=== PATIENT | male | born 1960 | race African-American/Black ===

== ENCOUNTER 2017-04-24 14:20 | Emergency (ER) | payer BC ==
[2017-04-24 14:26] VITALS: BP 129/74; PULSE 94; TEMP 98; BMI 28.5
--- NOTE | 2017-04-24 14:29 | PDOC ---
Rapid Medical Evaluation Time Seen by Provider: 04/24/17 14:25 Medical Evaluation: Allergies Allergy/AdvReac Type Severity Reaction Status Date / Time No Known Allergies Allergy Verified 04/24/17 14:22 04/24/17 14:25 The patient presents with a chief complaint of: L lower back pain for one day. Pt. is a construction job titles. I have performed a brief in-person evaluation of this patient; Pertinent physical exam findings: TTP of the L lower back, buttock I have ordered the following: Nothing The patient will proceed to the ED for further evaluation.
[2017-04-24] MEDS ORDERED: KETOROLAC TROMETHAMINE 60 MG/2 ML VIAL IM ONE (15:16)
[2017-04-24] MEDS ORDERED: diazePAM 5 MG TABLET PO ONE (15:17)
--- NOTE | 2017-04-24 15:21 | PDOC ---
History of Present Illness - General Chief Complaint: Back Pain Stated Complaint: BACK PAIN/REAR PAIN Time Seen by Provider: 04/24/17 14:25 History Source: Patient Exam Limitations: No Limitations - History of Present Illness Initial Comments: 04/24/17 15:20 CHIEF COMPLAINT: [Lower back pain] HISTORY OF PRESENT ILLNESS:[56]-year-old [male], history of low back pain two years ago. 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 No neurosensory deficits, no bowel or bladder difficulty incontinence or urinary retention, no saddle anesthesia, no footdrop. No history of IVDU or history of cancer. ] REVIEW OF SYSTEMS: GENERAL: Afebrile, denies any weakness RESPIRATORY: No cough, wheezing, or hemoptysis. CARDIAC: No chest pain or shortness of breath MUSCULOSKELETAL: Pain to left lateral lower back. No point tenderness. Pain worse on left then right ] SKIN : No erythema, no bruising, no deformity. GI/: Denies any abdominal pain, no urinary difficulty, incontinence or urinary retention. RECTAL: Denies any difficulty this A.m. NEUROLOGICAL: Denies any numbness or tingling. No neurosensory deficits. PHYSICAL EXAM: GENERAL: The patient is awake, alert, and fully oriented, in no acute distress. RESPIRATORY: Lungs clear bilaterally, no rhonchi wheezes or crackles CARDIAC: S1-S2 audible, no murmur rub or gallop MUSCULOSKELETAL: Pain to generalized lower back, nonradiating, no tingling or sensory deficit. Less than 2 second cap refill, +4 popliteal and pedal pulses. GI/: Abdomen soft, nontender, nondistended. No rebound tenderness. No masses palpable. MUSCULOSKELETAL: No spinal point tenderness. Normal reflexive and no deficits to sensation or strength. RECTAL: Good rectal tone SKIN: Warm, Dry, normal turgor, no erythema, no edema no bruising. Past History - Past Medical History Allergies/Adverse Reactions: Allergies Allergy/AdvReac Type Severity Reaction Status Date / Time No Known Allergies Allergy Verified 04/24/17 14:22 Home Medications: Ambulatory Orders Cyclobenzaprine HCl [Flexeril 10 mg] 10 mg PO BID PRN #20 tablet MDD 2 04/24/17 Methylprednisolone [Medrol Dose Ismael] 4 mg PO ASDIR #21 tablet 12/14/17 COPD: No - Immunization History Immunization Up to Date: Yes - Suicide/Smoking/Psychosocial Hx Smoking History: Current every day smoker Have you smoked in the past 12 months: Yes Number of Cigarettes Smoked Daily: 10 Information on smoking cessation initiated: Yes 'Breaking Loose' booklet given: 04/24/17 Hx Alcohol Use: No Drug/Substance Use Hx: No Substance Use Type: None *Physical Exam - Vital Signs Last Vital Signs Temp Pulse Resp BP Pulse Ox 98.0 F 94 H 18 129/74 100 04/24/17 14:23 04/24/17 14:23 04/24/17 14:23 04/24/17 14:23 04/24/17 14:23 Medical Decision Making - Medical Decision Making 04/24/17 15:48 A/P: Patient with lower back pain, lifts heavy things and a daily basis denies any neurosensory deficits no footdrop or saddle anesthesia. No bowel or bladder difficulty. Patient with sciatic pain, toradol 60 mg IM x 1 and Valium 5 mg po given. Will reevaluate. 04/24/17 18:32 Patient reports he feels a little better after the Toradol DC patient home on Medrol Dosepak and Flexeril, strict follow-up with orthopedics. Proper lifting technique. I discussed the physical exam findings, ancillary test results and final diagnoses with the patient. I answered all of the patient's questions. The patient was satisfied with the care received and felt comfortable with the discharge plan and treatment plan. The patient will call to arrange follow-up and will return to the Emergency Department with any new, persistent or worsening symptoms. *DC/Admit/Observation/Transfer Diagnosis at time of Disposition: Back pain Qualifiers: Back pain location: low back pain Chronicity: acute Back pain laterality: left Sciatica presence: with sciatica Sciatica laterality: sciatica of left side Qualified Code(s): M54.42 - Lumbago with sciatica, left side - Discharge Dispostion Disposition: HOME Condition at time of disposition: Good Admit: No - Prescriptions Prescriptions: Cyclobenzaprine HCl [Flexeril 10 mg] 10 mg PO BID PRN #20 tablet MDD 2 PRN Reason: Pain Methylprednisolone [Medrol Dose Ismael] 4 mg PO ASDIR #21 tablet - Referrals Referrals: Bernard Gilliland MD [Staff Physician] - - Patient Instructions Printed Discharge Instructions: DI for Low Back Pain Additional Instructions: 1. Please return to the emergency department with any numbness, tingling, weakness, numbness or tingling to groin or legs, or loss of bowel or bladder function. 2. Use pain medication as ordered. 3. Please is to followup in the office of [Darshana] for evaluation within a week if no improvement. 4. Ice or heat 5. Refrain from lifting anything above 10 pounds, until pain resolved. - Post Discharge Activity Forms/Work/School Notes: Back to Work
[2017-04-24] MEDS ORDERED: KETOROLAC TROMETHAMINE 60 MG/2 ML VIAL ONE (15:22)
[2017-04-24] MEDS ORDERED: diazePAM 5 MG TABLET ONE (15:22)
== END 2017-04-24 16:41 | disposition home or self-care (01) ==
LOC: JERFT 14:20
PROC: 3E0233Z Introduction of Anti-inflammatory into Muscle, Percutaneous Approach (ICD-10-PCS; principal; 2017-04-24)
DX: M54.42 Lumbago with sciatica, left side (principal); X58.XXXA Exposure to other specified factors, initial encounter; Y93.89 Activity, other specified; Y92.9 Unspecified place or not applicable; Y99.0 Civilian activity done for income or pay; F17.210 Nicotine dependence, cigarettes, uncomplicated
CPT/HCPCS: 99281-25

== ENCOUNTER 2017-09-29 07:14 | Emergency (ER) | payer BC ==
[2017-09-29 07:38] VITALS: BP 130/55; PULSE 106; TEMP 98.3; BMI 27.8
--- NOTE | 2017-09-29 09:19 | PDOC ---
History of Present Illness - General Chief Complaint: Pain Stated Complaint: RIGHT SIDE PAIN/GROIN PAIN Time Seen by Provider: 09/29/17 08:46 History Source: Patient Exam Limitations: No Limitations - History of Present Illness Initial Comments: 09/29/17 09:15 Best Contact: PCP:none Pmhx:N/A Pshx: 1979's/ bilat knee arthroscopy Allergies: NKDA 57-year-old male presents to the ER complaining of right lower back pain which radiates into the right buttocks and down the lateral right leg to the lateral knee since yesterday. Patient denies any injuries/fall/trauma. Pain is described as 4/10 dull discomfort. There are no exacerbating or alleviating factors. Patient denies fever, chills, nausea/vomiting, chest pain, shortness of breath, abdominal pains, urinary symptoms. Eyes history of renal colic. Past History - Past Medical History Allergies/Adverse Reactions: Allergies Allergy/AdvReac Type Severity Reaction Status Date / Time No Known Allergies Allergy Verified 09/29/17 07:34 Home Medications: Ambulatory Orders NK [No Known Home Medication] 09/29/17 COPD: No Other medical history: DENIES. - Immunization History Immunization Up to Date: Yes - Suicide/Smoking/Psychosocial Hx Smoking History: Current every day smoker Have you smoked in the past 12 months: Yes Number of Cigarettes Smoked Daily: 10 Information on smoking cessation initiated: No 'Breaking Loose' booklet given: 04/24/17 Hx Alcohol Use: No Drug/Substance Use Hx: No Substance Use Type: None Review of Systems - Review of Systems Able to Perform ROS?: Yes Comments:: 09/29/17 09:18 CONSTITUTIONAL: Absent: fever, chills, diaphoresis, generalized weakness, malaise, loss of appetite HEENT: Absent: rhinorrhea, nasal congestion, throat pain, throat swelling, difficulty swallowing, mouth swelling, ear pain, eye pain, visual Changes CARDIOVASCULAR: Absent: chest pain, loss of consciousness, palpitations, irregular heart rate, peripheral edema RESPIRATORY: Absent: cough, shortness of breath, dyspnea with exertion, orthopnea, wheezing, stridor, hemoptysis GASTROINTESTINAL: Absent: abdominal pain, abdominal distension, nausea, vomiting, diarrhea, constipation, melena, hematochezia GENITOURINARY: Absent: dysuria, frequency, urgency, hesitancy, hematuria, flank pain, genital pain MUSCULOSKELETAL: +Right low back pain /radiating to right buttock/lat upper leg to knee Absent: myalgia, arthralgia, joint swelling SKIN: Absent: rash, itching, pallor HEMATOLOGIC/IMMUNOLOGIC: Absent: easy bleeding, easy bruising, lymphadenopathy, frequent infections ENDOCRINE: Absent: unexplained weight gain, unexplained weight loss, heat intolerance, cold intolerance NEUROLOGIC: Absent: headache, focal weakness or paresthesias, dizziness, unsteady gait, seizure, mental status changes, bladder or bowel incontinence PSYCHIATRIC: Absent: anxiety, depression, suicidal or homicidal ideation, hallucinations. Is the patient limited Spanish proficient: No *Physical Exam - Vital Signs Last Vital Signs Temp Pulse Resp BP Pulse Ox 98.3 F 106 H 19 130/55 99 09/29/17 07:34 09/29/17 07:34 09/29/17 07:34 09/29/17 07:34 09/29/17 07:34 - Physical Exam Comments: 09/29/17 09:18 GENERAL: Well developed, well nourished. Awake and alert. No acute distress. HEENT: Normocephalic, atraumatic. PERRLA, EOMI. No conjunctival pallor. Sclera are non- icteric. Moist mucous membranes. Oropharynx is clear. NECK: Supple. Full ROM. No JVD. Carotid pulses 2+ and symmetric, without bruits. No thyromegaly. No lymphadenopathy. CARDIOVASCULAR: Regular rate and rhythm. No murmurs, rubs, or gallops. Distal pulses are 2+ and symmetric. PULMONARY: No evidence of respiratory distress. Lungs clear to auscultation bilaterally. No wheezing, rales or rhonchi. ABDOMINAL: Soft. Non-tender. Non-distended. No rebound or guarding. No organomegaly. Normoactive bowel sounds. MUSCULOSKELETAL Normal range of motion at all joints. No bony deformities or tenderness. No CVA tenderness. EXTREMITIES: No cyanosis. No clubbing. No edema. No calf tenderness. SKIN: Warm and dry. Normal capillary refill. No rashes. No jaundice. NEUROLOGICAL: Alert, awake, appropriate. Cranial nerves 2-12 intact. No deficits to light touch and temperature in face, upper extremities and lower extremities. No motor deficits in the in face, upper extremities and lower extremities. Normoreflexic in the upper and lower extremities. Normal speech. Toes are down- going bilaterally. Gait is normal without ataxia. PSYCHIATRIC: Cooperative. Good eye contact. Appropriate mood and affect. Moderate Sedation - Procedure Monitoring Vital Signs: Vital Signs Temp Pulse Resp BP Pulse Ox 98.3 F 106 H 19 130/55 99 09/29/17 07:34 09/29/17 07:34 09/29/17 07:34 09/29/17 07:34 09/29/17 07:34 *DC/Admit/Observation/Transfer Diagnosis at time of Disposition: Back pain Qualifiers: Back pain location: low back pain Chronicity: acute Back pain laterality: right Sciatica presence: unspecified whether sciatica present Qualified Code(s) : M54.5 - Low back pain - Discharge Dispostion Condition at time of disposition: Stable Decision to Admit order: No - Referrals Referrals: Bernard Gilliland MD [Staff Physician] - - Patient Instructions Printed Discharge Instructions: DI for Low Back Pain Additional Instructions: Ice; 20 mins on alternating with 20 mins off for 48 hours while awake. Rest Follow up with your orthopedic surgeon or the one listed on the discharge form. Return to the ER for severe/persistent/worsening symptoms, extremity numbness/ tingling sensation. - Post Discharge Activity
[2017-09-29 09:24] LABS: URINE APPEARANCE CLEAR; URINE BILIRUBIN NEGATIVE (<2.0 mg/dL); URINE BLOOD 1+ (NEGATIVE); URINE COLOR DKYELLOW; URINE GLUCOSE (UA) 1+ (NEGATIVE); URINE KETONE NEGATIVE (NEGATIVE); URINE LEUK ESTERASE NEGATIVE (NEGATIVE); URINE NITRITE NEGATIVE (NEGATIVE)
[2017-09-29] MEDS ORDERED: KETOROLAC TROMETHAMINE 60 MG/2 ML VIAL IM ONE (09:29)
[2017-09-29 09:33] LABS: URINE PROTEIN 1+ (NEGATIVE)
[2017-09-29 09:34] LABS: EPI CELLS RARE /HPF (FEW); URINE MUCUS MODERATE
[2017-09-29] MEDS ORDERED: KETOROLAC TROMETHAMINE 60 MG/2 ML VIAL ONE (09:50)
== END 2017-09-29 09:57 | disposition home or self-care (01) ==
LOC: JER 07:14 → JERFT 07:14
PROC: 3E0233Z Introduction of Anti-inflammatory into Muscle, Percutaneous Approach (ICD-10-PCS; principal; 2017-09-29)
DX: M54.5 Low back pain (principal)
CPT/HCPCS: 81003; 81015; 99281-25

== ENCOUNTER 2018-01-25 08:52 | Emergency (ER) | payer BC ==
[2018-01-25 09:02] VITALS: BMI 27.3
--- NOTE | 2018-01-25 09:09 | PDOC ---
History of Present Illness - General Chief Complaint: Respiratory Stated Complaint: RESPIRATORY Time Seen by Provider: 01/25/18 09:08 - History of Present Illness Initial Comments: 01/25/18 09:22 The patient is a 57 year old male who denies significant PMH who presents for evaluation of SOB, cough, and body aches. The patient reports a 1 week history of worsening non-productive cough with associated SOB and body aches prompting his presentation to the ED for further evaluation. He denies similar symptoms in the past and notes that he smokes 1 pack of cigarettes every 2 days and marijuana daily. He otherwise denies fevers, chills, chest pain, nausea, vomiting, abdominal pain, or changes with urination or bowel movements. Past History - Past Medical History Allergies/Adverse Reactions: Allergies Allergy/AdvReac Type Severity Reaction Status Date / Time No Known Allergies Allergy Verified 01/25/18 09:02 Home Medications: Ambulatory Orders Azithromycin [Zithromax 250mg Tablets -] 250 mg PO UTDICT #6 tab 01/25/18 COPD: No - Immunization History Immunization Up to Date: Yes - Suicide/Smoking/Psychosocial Hx Smoking History: Current every day smoker Have you smoked in the past 12 months: Yes Number of Cigarettes Smoked Daily: 10 Information on smoking cessation initiated: No 'Breaking Loose' booklet given: 04/24/17 Hx Alcohol Use: No Drug/Substance Use Hx: No Substance Use Type: None, Marijuana Review of Systems - Review of Systems Comments:: 01/25/18 09:24 Constitutional: Body aches. No fevers, chills, fatigue, HEENT: No Rhinorrhea, nasal congestion, visual changes Cardiovascular: No chest pain, syncope, palpitations, lightheadedness Respiratory: Cough, SOB. No Hemoptysis, Gastrointestinal: No Abdominal pain, Nausea, Vomiting, Constipation, Diarrhea, Melena Genitourinary: No Dysuria, Frequency, Urgency, Hesitancy, Hematuria, Flank pain Musculoskeletal: No Myalgia, arthralgia Skin: No rashes, itching, bruising, pallor Neurologic: No Headache, Dizziness, Numbness, Weakness, or Tingling. Psychiatric: No Hallucinations. No SI or HI *Physical Exam - Vital Signs Last Vital Signs Temp Pulse Resp BP Pulse Ox 98.1 F 92 H 20 128/79 93 L 01/25/18 08:59 01/25/18 08:59 01/25/18 08:59 01/25/18 08:59 01/25/18 08:59 - Physical Exam Comments: 01/25/18 09:24 General Appearance: Nourished. No Apparent Distress HEENT: No Pharyngeal Erythema, Tonsillar Exudate, Tonsillar Erythema Neck: No Cervical Lymphadenopathy Respiratory/Chest: Expiratory wheezing noted on exam. No Crackles, Rales, Rhonchi, Cardiovascular: Regular Rhythm, Regular Rate. No Murmur, Gallops, Rubs Gastrointestinal/Abdominal: Normal Bowel Sounds, Soft. No Guarding, Rebound, Tenderness Musculoskeletal: No CVA Tenderness Extremity: Normal Capillary Refill Integumentary: Normal Color, Dry, Warm Neurologic: Fully Oriented, Alert, Normal Mood/Affect, Normal Response, Heart Score/ECG Review #1 ECG reviewed & interpreted by me at: 09:27 General ECG Interpretation: Sinus Rhythm, Normal Rate, Normal Intervals, No acute ischemic changes Medical Decision Making - Medical Decision Making 01/25/18 09:25 The patient is a 57 year old male who denies significant PMH who presents for evaluation of SOB, cough, and body aches. Differential includes but is not limited to: COPD exacerbation, pneumonia. Given the patient's history and physical exam, we will obtain a chest plain film and ekg to evaluate further. We will treat with duonebs and oral prednisone and continue to monitor and reassess while here in the ED. 01/25/18 10:51 The patient reports improvement in his symptoms. Chest plain film is unremarkable as read by our radiologist. We are comfortable discharging the patient home on azithromycin with primary care provider follow up. We discussed the results, plan, and return precautions with the patient who voiced understanding and is agreeable with the plan. *DC/Admit/Observation/Transfer Diagnosis at time of Disposition: Bronchitis COPD (chronic obstructive pulmonary disease) Qualifiers: COPD type: unspecified COPD Qualified Code(s): J44.9 - Chronic obstructive pulmonary disease, unspecified - Discharge Dispostion Disposition: HOME Condition at time of disposition: Stable Decision to Admit order: No - Prescriptions Prescriptions: Azithromycin [Zithromax 250mg Tablets -] 250 mg PO UTDICT #6 tab - Referrals - Patient Instructions Printed Discharge Instructions: DI for Acute Bronchitis Additional Instructions: Please return to the ER if you experience concerning or worsening symptoms including worsening difficulty breathing, weakness, or chest pain. We have sent a prescription for antibiotics to your pharmacy that you should take as directed. Please call to schedule a follow up appointment with your primary care provider within 2-3 days to discuss your ER visit and further management of your symptoms. - Post Discharge Activity
[2018-01-25] MEDS ORDERED: ALBUTEROL SO4 2.5/IPRATROPIUM 0.5 INH SOL 3 ML VIAL.NEB. NEB ONE ×4 (09:14→10:12)
[2018-01-25] MEDS ORDERED: predniSONE 20 MG TABLET (UD) PO ONE (09:17)
[2018-01-25] MEDS ORDERED: predniSONE 20 MG TABLET (UD) ONE (09:20)
--- NOTE | 2018-01-25 09:42 | PDOC ---
Attending Attestation - Resident Resident Name: Brian Saenz - ED Attending Attestation I have performed the following: I have examined & evaluated the patient, The case was reviewed & discussed with the resident, I agree w/resident's findings & plan, Exceptions are as noted - HPI HPI: 01/25/18 09:38 57-year-old male with reportedly no past medical history, half pack per day smoker and marijuana smoker presents with difficulty breathing and yellowish sputum cough for one week. The patient denies a fevers or chills. States that the weather changes exasperate the symptoms. Never been formally diagnosed with asthma or emphysema. Denies chest pain. - Physicial Exam PE: 01/25/18 09:40 GENERAL: Awake, alert, and fully oriented, in no acute distress HEAD: No signs of trauma EYES: EOMI, sclera anicteric, conjunctiva clear ENT: Auricles normal inspection, hearing grossly normal, nares patent, Moist mucosa NECK: Normal ROM, supple LUNGS: Tight breath sounds and feint expiratory wheezing bilaterally. HEART: Regular rate and rhythm, normal S1 and S2, no murmurs, rubs or gallops EXTREMITIES: Normal range of motion, no edema. No clubbing or cyanosis. No cords, erythema, or tenderness NEUROLOGICAL: Cranial nerves II through XII grossly intact. Normal speech, normal gait SKIN: Warm, Dry, normal turgor, no rashes or lesions noted. - Medical Decision Making 01/25/18 09:42 Vital Signs Temp Pulse Resp BP Pulse Ox 98.1 F 92 H 20 128/79 93 L 01/25/18 08:59 01/25/18 08:59 01/25/18 08:59 01/25/18 08:59 01/25/18 08:59 I suspect the patient likely has underlying COPD. Will treat with dubonebs and prednisone. Chest xray to r/o PNA. If chest xray negative, will treat as bronchitis with azithromycin. If symptoms improve, pt can follow up as outpatient. 01/25/18 10:01 Chest xray reviewed. No acute findings. Heart Score/ECG Review #1 ECG reviewed & interpreted by me at: 09:30 01/25/18 09:42 NSR 91, no std/ann, normal axis, normal intervals, QTC 450 msec
[2018-01-25 10:19] VITALS: BP 132/78; PULSE 86; TEMP 99.1
--- NOTE | 2018-01-25 21:12 | EKG ---
Test Reason : Blood Pressure : / mmHG Vent. Rate : 091 BPM Atrial Rate : 091 BPM P-R Int : 148 ms QRS Dur : 094 ms QT Int : 366 ms P-R-T Axes : 080 000 062 degrees QTc Int : 450 ms NORMAL SINUS RHYTHM NORMAL ECG WHEN COMPARED WITH ECG OF 14-JUN-2015 14:56, VENT. RATE HAS INCREASED BY 32 BPM QT HAS LENGTHENED Confirmed by LADAN LEMOS MD ([id number]) on 01/25/2018 9:11:51 PM Referred By: Confirmed By:LADAN LEMOS MD
== END 2018-01-25 10:58 | disposition home or self-care (01) ==
LOC: JER 08:52
PROC: 3E0F7GC Introduction of Other Therapeutic Substance into Respiratory Tract, Via Natural or Artificial Opening (ICD-10-PCS; principal; 2018-01-25)
DX: J44.9 Chronic obstructive pulmonary disease, unspecified (principal); J40 Bronchitis, not specified as acute or chronic; F17.210 Nicotine dependence, cigarettes, uncomplicated
CPT/HCPCS: 71046-TC-FY; 93005; 93010; 99282-25; J7620

== ENCOUNTER 2018-12-21 21:13 | Emergency (ER) | payer BC ==
[2018-12-21] MEDS ORDERED: ONDANSETRON *ODT* 4 MG TABLET SL ONE (21:28)
--- NOTE | 2018-12-21 21:30 | PDOC ---
Rapid Medical Evaluation Chief Complaint: Nausea/Vomiting Time Seen by Provider: 12/21/18 21:27 Medical Evaluation: Allergies Allergy/AdvReac Type Severity Reaction Status Date / Time No Known Allergies Allergy Verified 01/25/18 09:02 12/21/18 21:28 HPI: Abdominal pain and vomiting x1 day PE: No gross deficits but appears uncomfortable ORDERS: Labs Discharge Disposition - Diagnosis Abdominal pain - Referrals - Patient Instructions - Post Discharge Activity
[2018-12-21 21:38] VITALS: TEMP 98.3
[2018-12-21] MEDS ORDERED: ONDANSETRON *ODT* 4 MG TABLET ONE (23:36)
[2018-12-21] MEDS ORDERED: SODIUM CHLORIDE 1,000 ML IV STA (23:43)
--- NOTE | 2018-12-22 00:09 | PDOC ---
History of Present Illness - General Chief Complaint: Nausea/Vomiting Stated Complaint: VOMITING Time Seen by Provider: 12/21/18 21:27 - History of Present Illness Initial Comments: 12/22/18 05:40 58M with no pmh presents to the ED with nausea and vomiting since this morning. Complains of diffuse abdominal pain from the retching. Did not eat anything usual last night but did smoke significant amount of marijuana. No sick contacts. Past History - Past Medical History Allergies/Adverse Reactions: Allergies Allergy/AdvReac Type Severity Reaction Status Date / Time No Known Allergies Allergy Verified 01/25/18 09:02 Home Medications: Ambulatory Orders Azithromycin [Zithromax 250mg Tablets -] 250 mg PO UTDICT #6 tab 01/25/18 COPD: No - Immunization History Immunization Up to Date: Yes - Suicide/Smoking/Psychosocial Hx Smoking History: Never smoked Have you smoked in the past 12 months: Yes Number of Cigarettes Smoked Daily: 10 'Breaking Loose' booklet given: 04/24/17 Hx Alcohol Use: No Drug/Substance Use Hx: No Substance Use Type: None, Marijuana Review of Systems - Review of Systems Able to Perform ROS?: Yes Is the patient limited Tuvaluan proficient: No Constitutional: No: Symptoms Reported, Chills, Fever, Weakness HEENTM: No: Symptoms Reported Respiratory: No: Symptoms reported Cardiac (ROS): No: Symptoms Reported ABD/GI: Yes: See HPI, Nausea, Vomiting. No: Abd. Pain w/ defecation, Blood Streaked Bowels, Constipated, Diarrhea, Difficulty Swallowing, Poor Appetite, Poor Fluid Intake, Rectal Bleeding, Indigestion : No: Symptoms Reported Musculoskeletal: No: Symptoms Reported Integumentary: No: Symptoms Reported Neurological: No: Symptoms reported *Physical Exam - Vital Signs Last Vital Signs Temp Pulse Resp BP Pulse Ox 98.3 F 102 H 20 144/100 99 12/21/18 21:22 12/21/18 21:22 12/21/18 21:22 12/21/18 21:22 12/21/18 21:22 - Physical Exam General Appearance: Yes: Nourished, Appropriately Dressed. No: Apparent Distress HEENT: positive: EOMI, ZHANE, Normal ENT Inspection Respiratory/Chest: positive: Lungs Clear, Normal Breath Sounds. negative: Chest Tender, Respiratory Distress Cardiovascular: positive: Regular Rhythm, Regular Rate, S1, S2 Gastrointestinal/Abdominal: positive: Normal Bowel Sounds, Tender (diffusely, but more so suprapubic), Soft Musculoskeletal: positive: Normal Inspection. negative: CVA Tenderness Extremity: positive: Normal Capillary Refill, Normal Inspection, Normal Range of Motion Integumentary: positive: Normal Color, Dry, Warm Neurologic: positive: Fully Oriented, Alert, Normal Mood/Affect, Normal Response , Motor Strength 09/13 ED Treatment Course - LABORATORY CBC & Chemistry Diagram: 12/21/18 23:30 12/21/18 23:50 - Medications Given in the ED: ED Medications Discontinued Medications Generic Name Dose Route Start Last Admin Trade Name Freq PRN Reason Stop Dose Admin Ondansetron HCl 4 mg 12/21/18 21:28 12/21/18 23:35 Zofran Odt - SL 12/21/18 21:29 4 mg ONCE ONE Administration Medical Decision Making - Medical Decision Making 12/22/18 04:45 58m With n/v and abdominal pain. Likely cannabinoid hyperemesis, possible viral gastro, appendicitis... Will treat nausea with zofran, replenish fluids, Obtain ct for abdominal tenderness. CT read: Small umbilical hernia which bowel mildly protrudes but is not entrapped. No definite evidence of acute pathology. 12/22/18 05:49 Patient feels better. Hungry. Ok to dc and follow up. *DC/Admit/Observation/Transfer Diagnosis at time of Disposition: Nausea vomiting and diarrhea - Discharge Dispostion Disposition: HOME Condition at time of disposition: Improved Decision to Admit order: No - Referrals - Patient Instructions Printed Discharge Instructions: DI for Nausea -- Adult, DI for Vomiting -- Adult Additional Instructions: Come back to the emergency department for any new, worsening and concerning symptom. Follow up with your primary physician within the week. - Post Discharge Activity
[2018-12-22 00:38] LABS: BASO % 0.3 % (0-2.0); HEMATOCRIT 47.6 % (35.4-49); HEMOGLOBIN 16.1 GM/dL (11.7-16.9); LYMPH % 8.6 % (8-40); MCH 31.1 pg (25.7-33.7); MCHC 33.8 g/dl (32.0-35.9); MEAN CELL VOLUME 92.1 fl (80-96); MEAN PLT VOLUME 8.3 fl (7.5-11.1); NEUT % 87.1 % (42.8-82.8); PLATELET COUNT 269 K/MM3 (134-434); RBC 5.17 M/mm3 (4.00-5.60); WHITE BLOOD COUNT 13.5 K/mm3 (4.0-10.0)
[2018-12-22 00:54] LABS: ALBUMIN 4.2 g/dl (3.4-5.0); ALK PHOS 91 U/L (45-117); ANION GAP 7 MMOL/L (8-16); BILIRUBIN,TOTAL 0.6 mg/dL (0.2-1); BLOOD UREA NITROGEN 15.6 mg/dL (7-18); CALCIUM 9.5 mg/dL (8.5-10.1); CHLORIDE 101 mmol/L (98-107); CO2 30 mmol/L (21-32); GLUCOSE,RANDOM 141 mg/dL (74-106); POTASSIUM 4.1 mmol/L (3.5-5.1); SGOT/AST 28 U/L (15-37); SGPT/ALT 36 U/L (13-61); SODIUM 138 mmol/L (136-145); TOT PROT 8.2 g/dl (6.4-8.2)
[2018-12-22] MEDS ORDERED: FAMOTIDINE 20 MG/50 ML IVPB 20 MG/50 ML MG IVPB ONE ×2 (01:12→02:08)
--- NOTE | 2018-12-22 02:08 | PDOC ---
Attending Attestation - Resident Resident Name: Cornell Haider - ED Attending Attestation I have performed the following: I have examined & evaluated the patient, The case was reviewed & discussed with the resident, I agree w/resident's findings & plan - HPI HPI: 58-year-old male with vomiting diarrhea and abdominal pain. Patient admits to marijuana use. - Physicial Exam PE: 12/22/18 02:11 GENERAL: Awake, in no acute distress HEAD: No signs of trauma EYES: ENT:clear without exudates. Moist mucosa NECK: Normal ROM, LUNGS:. Normal work of breathing. HEART: Regular rate and rhythm, ABDOMEN: diffuse tenderness abdomen nondistended CHEST WALL: BACK: No midline tenderness. EXTREMITIES:. No erythema, or tenderness NEUROLOGICAL: Alert, SKIN: Warm, Dry - Medical Decision Making 12/22/18 02:11 58-year-old male with vomiting diarrhea and abdominal pain Plan for IV fluids, antiemetics and antacids CT scan of the abdomen and pelvis due to persistent tenderness Patient currently asking for juice, he will be a likely DC home if CT scan negative
[2018-12-22 06:40] VITALS: BP 124/65; PULSE 65
--- NOTE | 2018-12-22 11:25 | EKG ---
Test Reason : Blood Pressure : / mmHG Vent. Rate : 094 BPM Atrial Rate : 094 BPM P-R Int : 158 ms QRS Dur : 096 ms QT Int : 368 ms P-R-T Axes : 079 028 078 degrees QTc Int : 460 ms POOR DATA QUALITY, INTERPRETATION MAY BE ADVERSELY AFFECTED NORMAL SINUS RHYTHM NORMAL ECG WHEN COMPARED WITH ECG OF 25-JAN-2018 09:26, NO SIGNIFICANT CHANGE WAS FOUND Confirmed by Fantasma Vazquez MD ([id number]) on 12/22/2018 11:24:56 AM Referred By: Confirmed By:Fantasma Vazquez MD
== END 2018-12-22 04:00 | disposition home or self-care (01) ==
LOC: JER 21:13
PROC: 3E033GC Introduction of Other Therapeutic Substance into Peripheral Vein, Percutaneous Approach (ICD-10-PCS; principal; 2018-12-21)
PROC: 3E0337Z Introduction of Electrolytic and Water Balance Substance into Peripheral Vein, Percutaneous Approach (ICD-10-PCS; 2018-12-21)
DX: R11.2 Nausea with vomiting, unspecified (principal); R19.7 Diarrhea, unspecified; R10.9 Unspecified abdominal pain
CPT/HCPCS: 36415; 74177-TC; 80053; 82550; 82553; 83690; 84484; 85025; 93005; 93010; 99283-25; J7030; Q0162

== ENCOUNTER 2019-03-28 09:50 | Emergency (ER) | payer BC ==
[2019-03-28 10:02] VITALS: TEMP 98.2; BMI 27.8
[2019-03-28] MEDS ORDERED: ACETAMINOPHEN 325 MG TABLET (FP) PO ONE (10:14)
--- NOTE | 2019-03-28 10:51 | PDOC ---
History of Present Illness - General Chief Complaint: Edema Stated Complaint: LT KNEE SWOLLEN Time Seen by Provider: 03/28/19 10:11 History Source: Patient Exam Limitations: No Limitations - History of Present Illness Initial Comments: 03/28/19 10:25 58-year-old male with history of bilateral knee surgery over 15 years ago presents to the ED with progressively worsening left knee pain. 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 Patient states the past month and has been becoming swollen by the end of the day but for the past week it has been swollen 24 hours and has to take Motrin or Tylenol for discomfort. Patient denies fever, chills, redness or increased warmth to the area. Patient states is able to bend his knee but with severe discomfort which she describes as a pressure-like sensation behind the knee. patient denies history of diabetes or immunosuppression.. Is this a multiple visit Asthma Patient?: No Timing/Duration: 24 hours Severity: mild, moderate Associated Symptoms: reports: denies symptoms Past History - Travel Traveled outside of the country in the last 30 days: No Close contact w/someone who was outside of country & ill: No - Past Medical History Allergies/Adverse Reactions: Allergies Allergy/AdvReac Type Severity Reaction Status Date / Time No Known Allergies Allergy Verified 03/28/19 09:57 Home Medications: Ambulatory Orders Azithromycin [Zithromax 250mg Tablets -] 250 mg PO UTDICT #6 tab 01/25/18 Oxycodone HCl/Acetaminophen [Percocet 5-325 mg Tablet] 1 - 2 tab PO Q6H PRN #12 tab MDD 4 03/28/19 COPD: No - Immunization History Immunization Up to Date: Yes - Psycho Social/Smoking Cessation Hx Smoking History: Current every day smoker Have you smoked in the past 12 months: Yes Number of Cigarettes Smoked Daily: 10 Information on smoking cessation initiated: Yes 'Breaking Loose' booklet given: 04/24/17 Hx Alcohol Use: Yes Drug/Substance Use Hx: Yes Substance Use Type: None, Marijuana Patient Lives Alone: No Lives with/in: spouse/SO Review of Systems - Review of Systems Able to Perform ROS?: Yes Constitutional: No: Symptoms Reported Cardiac (ROS): No: Symptoms Reported ABD/GI: No: Nausea Musculoskeletal: Yes: Joint Pain, Joint Swelling. No: Muscle Pain Integumentary: No: Erythema Neurological: No: Symptoms reported Endocrine: No: Symptoms Reported Hematologic/Lymphatic: No: Symptoms Reported *Physical Exam - Vital Signs Last Vital Signs Temp Pulse Resp BP Pulse Ox 98.2 F 110 H 18 127/68 98 03/28/19 09:57 03/28/19 09:57 03/28/19 09:57 03/28/19 09:57 03/28/19 09:57 - Physical Exam General Appearance: Yes: Nourished, Appropriately Dressed. No: Apparent Distress Vascular Pulses: Doralis-Pedis (L): 2+ Extremity: positive: Normal Capillary Refill, Normal Range of Motion, Tender ( To the lateral aspect of left patella. Palpable fluid to the lateral aspect of left patella. No increased warmth or erythema noted. ) Integumentary: positive: Normal Color, Warm, Moist Neurologic: positive: Motor Strength 5/5 (Ambulatory but with limp) ED Treatment Course - RADIOLOGY Radiology Studies Ordered: Category Date Time Status KNEE 3 POS-LEFT [RAD] Stat Radiology 03/28/19 10:11 Ordered Medical Decision Making - Medical Decision Making 03/28/19 10:28 Chief complaint: Left knee pain progressively worsening over the past few months patient with arthroscopic surgery to bilateral knees numerous years ago but states his line of work he feels is aggravating the knee. Exam: 2+ pedal pulse no erythema to the left patella. Palpable joint effusion noted no post patellar tenderness But with noted tenderness to the lateral aspect of left patella near effusion Plan: X-ray of the knee Percocet along with Tylenol. plan to discharge with Percocet knee immobilizer crutches and Ortho referral 03/28/19 11:30 X-ray negative for fracture or mass. 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 Discharge - Discharge Information Problems reviewed: Yes Clinical Impression/Diagnosis: Joint effusion of knee Condition: Good Disposition: HOME - Additional Discharge Information Prescriptions: Oxycodone HCl/Acetaminophen [Percocet 5-325 mg Tablet] 1 - 2 tab PO Q6H PRN #12 tab MDD 4 PRN Reason: Pain - Follow up/Referral Referrals: Bernard Gilliland MD [Staff Physician] - - Patient Discharge Instructions Patient Printed Discharge Instructions: DI for Knee Effusion Additional Instructions: At this time I will recommend elevating your leg when not walking applying ice to the affected area and use the knee immobilizer when ambulatory or you may use the Lucas wrap while at work but will only provide minimal support. May take Percocet for discomfort. Please follow-up with orthopedist - Post Discharge Activity
[2019-03-28] MEDS ORDERED: ACETAMINOPHEN 325 MG TABLET (FP) ONE (11:29)
[2019-03-28 12:02] VITALS: BP 118/70; PULSE 92
== END 2019-03-28 12:03 | disposition home or self-care (01) ==
LOC: JER 09:50
PROC: 2W3RXYZ Immobilization of Left Lower Leg using Other Device (ICD-10-PCS; principal; 2019-03-28)
DX: M25.462 Effusion, left knee (principal); F17.210 Nicotine dependence, cigarettes, uncomplicated
CPT/HCPCS: 73562-TC-LT-FY; 99282-25

== ENCOUNTER 2020-08-02 08:20 | Emergency (ER) | payer BC ==
[2020-08-02 08:25] VITALS: BP 127/73; PULSE 83; TEMP 98.5; BMI 30.9
== END 2020-08-02 09:19 | disposition home or self-care (01) ==
LOC: JERFT 08:20
DX: L72.3 Sebaceous cyst (principal)
CPT/HCPCS: 99283-25

== ENCOUNTER 2020-10-09 11:15 | Emergency (ER) | payer BC ==
[2020-10-09 11:25] VITALS: BP 120/82; PULSE 88; TEMP 98.1; BMI 30.7
[2020-10-09] MEDS ORDERED: KETOROLAC TROMETHAMINE 60 MG/2 ML VIAL IM ONE (11:56)
[2020-10-09] MEDS ORDERED: KETOROLAC TROMETHAMINE 60 MG/2 ML VIAL ONE (11:59)
== END 2020-10-09 12:22 | disposition home or self-care (01) ==
LOC: JERFT 11:15 → JER 11:15 → JERFT 12:22
PROC: 3E0233Z Introduction of Anti-inflammatory into Muscle, Percutaneous Approach (ICD-10-PCS; principal; 2020-10-09)
DX: M25.561 Pain in right knee (principal)
CPT/HCPCS: 99284-25

== ENCOUNTER 2021-09-24 06:13 | Emergency (ER) | payer BC ==
[2021-09-24 06:39] VITALS: BMI 28.7
[2021-09-24] MEDS ORDERED: ACETAMINOPHEN 1000 MG/100 ML BAG IVPB ONE (07:37)
[2021-09-24] MEDS ORDERED: ONDANSETRON 4 MG/2 ML VIAL IVPUSH ONE (07:37)
[2021-09-24] MEDS ORDERED: ACETAMINOPHEN INJECTION 100 ML IVPB ONE (07:49)
[2021-09-24] MEDS ORDERED: ONDANSETRON 4 MG/2 ML VIAL ONE (07:49)
[2021-09-24 08:47] LABS: BASO % 0.5 % (0-2.0); EOS % 0.3 % (0-4.5); HEMATOCRIT 44.7 % (35.4-49); HEMOGLOBIN 15.1 GM/dL (11.7-16.9); MCH 30.8 pg (25.7-33.7); MCHC 33.8 g/dl (32.0-35.9); MEAN PLT VOLUME 8.6 fl (7.5-11.1); MONO % 9.8 % (3.8-10.2); NEUT % 70.4 % (42.8-82.8); PLATELET COUNT 278 10^3/uL (134-434); RBC 4.91 M/mm3 (4.00-5.60); RDW 12.9 % (11.9-15.9); WHITE BLOOD COUNT 10.4 K/mm3 (4.0-10.0)
[2021-09-24 08:48] LABS: PH,URINE 6.5 (5.0-8.0); URINE APPEARANCE CLOUDY; URINE BILIRUBIN NEGATIVE (NEGATIVE); URINE COLOR YELLOW; URINE GLUCOSE (UA) NEGATIVE (NEGATIVE); URINE KETONE TRACE (NEGATIVE); URINE LEUK ESTERASE NEGATIVE (NEGATIVE); URINE NITRITE NEGATIVE (NEGATIVE); URINE PROTEIN TRACE (NEGATIVE)
[2021-09-24 09:03] LABS: ALBUMIN 3.4 g/dl (3.4-5.0); BLOOD UREA NITROGEN 10.2 mg/dL (7-18); CALCIUM 9.1 mg/dL (8.5-10.1)
[2021-09-24 09:07] LABS: CREATININE 0.8 mg/dL (0.55-1.3)
[2021-09-24 09:08] LABS: BILIRUBIN,TOTAL 0.6 mg/dL (0.2-1); TOT PROT 7.1 g/dl (6.4-8.2)
[2021-09-24] MEDS ORDERED: SODIUM CHLORIDE 0.9% 1000 ML INFUS.BAG IV ONE (09:40)
[2021-09-24 15:18] VITALS: BP 137/60; PULSE 72; TEMP 98
== END 2021-09-24 15:17 | disposition home or self-care (01) ==
LOC: JER 06:13
PROC: 3E0333Z Introduction of Anti-inflammatory into Peripheral Vein, Percutaneous Approach (ICD-10-PCS; principal; 2021-09-24)
PROC: 3E033GC Introduction of Other Therapeutic Substance into Peripheral Vein, Percutaneous Approach (ICD-10-PCS; 2021-09-24)
DX: R11.2 Nausea with vomiting, unspecified (principal); R10.30 Lower abdominal pain, unspecified
CPT/HCPCS: 36415; 74177-TC; 76870-TC; 80053; 81003; 83690; 85025; 87086; 99285-25; Q9967

== ENCOUNTER 2024-02-05 22:33 | Emergency (ER) | payer BC ==
[2024-02-05 22:44] VITALS: BP 125/78; PULSE 104; RESP 18; TEMP 98.3; BMI 29.9
[2024-02-05 23:19] LABS: BASO % 1.1 % (0-2.0); HEMATOCRIT 42.6 % (35.4-49); HEMOGLOBIN 14.5 GM/dL (11.7-16.9); LYMPH % 21.3 % (8-40); MCH 31.2 pg (25.7-33.7); MCHC 34.1 g/dl (32.0-35.9); MEAN CELL VOLUME 91.7 fl (80-96); MEAN PLT VOLUME 7.5 fl (7.5-11.1); MONO % 11.3 % (3.8-10.2); NEUT % 63.3 % (42.8-82.8); PLATELET COUNT 259 10^3/uL (134-434); RBC 4.64 M/mm3 (4.00-5.60); RDW 13.5 % (11.9-15.9); WHITE BLOOD COUNT 8.1 K/mm3 (4.0-10.0)
[2024-02-05 23:25] LABS: INR 0.96 (0.83-1.09)
[2024-02-05 23:28] LABS: ACTIVATED PTT 30.5 SECONDS (25.2-36.5)
[2024-02-05 23:31] LABS: ALBUMIN 3.5 g/dl (3.4-5.0)
[2024-02-05 23:32] LABS: BLOOD UREA NITROGEN 14.6 mg/dL (7-18); MAGNESIUM 2.4 mg/dL (1.8-2.4)
[2024-02-05 23:35] LABS: CREATININE 0.8 mg/dL (0.55-1.3)
[2024-02-05 23:36] LABS: BILIRUBIN,TOTAL 0.3 mg/dL (0.2-1); TOT PROT 7.1 g/dl (6.4-8.2)
[2024-02-06] MEDS: SODIUM CHLORIDE 0.9% 1000 ML INFUS.BAG IV ONE
[2024-02-06] MEDS: TETANUS AND DIPHTHERIA TOXOID 0.5 ML DISP.SYRIN IM ONE (00:03)
== END 2024-02-06 02:30 | disposition left against medical advice (07) ==
LOC: JER 22:33
DX: S00.91XA Abrasion of unspecified part of head, initial encounter (principal); R55 Syncope and collapse; W08.XXXA Fall from other furniture, initial encounter
CPT/HCPCS: 36415; 70450-TC; 71045-TC-FY; 80053; 80307; 83735; 84484; 85025; 85610; 85730; 93005; 93010; 99285-25